=== PATIENT | male | born 1990 ===

== ENCOUNTER 2024-01-11 23:03 | Emergency (ER) | payer SELFPAY ==
[2024-01-11 23:08] VITALS: BP 133/96; PULSE 77; RESP 14; TEMP 36.7; O2SAT 100
== END 2024-01-12 03:30 | disposition left against medical advice (07) ==
LOC: ANHED 01-12 02:08
DX: R09.89 Other specified symptoms and signs involving the circulatory and respiratory systems (principal)
CPT/HCPCS: 99199